=== PATIENT | male | born 1960 | race Caucasian/White ===

== ENCOUNTER → 2020-10-27 | Outpatient (REF) | LOC: M EMP 15:56 | PROVIDERS: ATTEND Family Medicine | DX: Z11.52 Encounter for screening for COVID-19 (principal) ==

== ENCOUNTER 2020-12-02 10:06 | Emergency (ER) | payer BC ==
[~2020-12-02] VITALS: Ht 175.3 cm; Wt 80.8 kg
[2020-12-02 11:23] LABS: RSV AMPLIFICATION NEGATIVE (NEGATIVE)
[2020-12-02 11:39] VITALS: BP 148/80
[2020-12-02] MEDS ORDERED: AUGM875T28 PO (11:41)
== END 2020-12-02 11:46 | disposition home or self-care (01) ==
LOC: M ED 10:06
DX: J02.9 Acute pharyngitis, unspecified (principal); Z88.1 Allergy status to other antibiotic agents; Z88.8 Allergy status to other drugs, medicaments and biological substances

== ENCOUNTER → 2021-01-02 | Outpatient (CLI) | payer BC ==
[~2021-01-02] MED LIST: AUGM875T28 PO
--- NOTE | 2021-01-02 12:01 | REP ---
INDICATION: RT FOOT PAIN. COMPARISON: None. TECHNIQUE: Three views FINDINGS: There are linear lucencies in the proximal phalanx of the 4th digit. These are seen in a limited fashion on this three view exam. IMPRESSION: Lucencies in the 4th digit as described above likely healing fractures. There are no priors comparison. <Electronically signed by Gunnar Del Angel > 01/02/21 [id number]
== END ==
LOC: M SOG 10:04
PROVIDERS: ATTEND Orthopaedic Surgery
DX: M79.671 Pain in right foot (principal)

== ENCOUNTER → 2021-03-03 | Outpatient (REF) | payer BC | LOC: M LABSMTC 10:03 | PROVIDERS: ATTEND Family Medicine | DX: Z11.52 Encounter for screening for COVID-19 (principal); Z20.822 Contact with and (suspected) exposure to COVID-19 ==

== ENCOUNTER → 2021-03-21 | Outpatient (CLI) | payer SELFPAY | LOC: M LABSMTC 09:11 | PROVIDERS: ATTEND Pediatrics | DX: Z20.822 Contact with and (suspected) exposure to COVID-19 (principal) ==

== ENCOUNTER → 2021-07-26 | Outpatient (CLI) | payer BC | LOC: M EKG 12:26 | PROVIDERS: ATTEND Anesthesiology | DX: Z01.818 Encounter for other preprocedural examination (principal); R94.31 Abnormal electrocardiogram [ECG] [EKG] ==

== ENCOUNTER → 2021-07-26 | Outpatient (CLI) | payer BC | LOC: M LABSMTC 06-12 14:45 | PROVIDERS: ATTEND Anesthesiology | DX: Z01.818 Encounter for other preprocedural examination (principal); Z11.52 Encounter for screening for COVID-19 ==

== ENCOUNTER 2021-07-31 06:16 | Day surgery (SDC) | payer BC ==
[~2021-07-31] VITALS: Ht 175.3 cm; Wt 81.8 kg
[~2021-07-31 06:16] MED LIST changes: +LR 1,000 ML IV SCH
[2021-07-31] MEDS ORDERED: LR 1,000 ML IV SCH ×2 (06:45→09:00)
[2021-07-31] MEDS ORDERED: propofoL 200 MG/20 ML VIAL As Ordered ONE (07:15)
[2021-07-31] MEDS ORDERED: MIDAZOLAM INJ 2MG/2ML VIAL (J2250 PER 1MG) As Ordered ONE (07:15)
[2021-07-31] MEDS ORDERED: fentaNYL 250 MCG/5 ML INJECTION As Ordered ONE (07:15)
[2021-07-31] MEDS ORDERED: LIDOCAINE 2% 100MG/5ML SDV (FOR ANES.) As Ordered ONE (07:15)
[2021-07-31] MEDS ORDERED: ROCURONIUM BROMIDE 50 MG/5 ML VIAL As Ordered ONE (07:15)
[2021-07-31] MEDS ORDERED: SCOPOLAMINE 1MG TRANSDERMAL PATCH TOP ONE (07:20)
[2021-07-31] MEDS ORDERED: BUPIVACAINE HCL 0.25% 30ML VIAL As Ordered ONE (07:20)
[2021-07-31] MEDS ORDERED: dexameTHASONE 4 MG/ML 1ML VIAL (J1100 PER 1MG) As Ordered ONE (07:50)
[2021-07-31] MEDS ORDERED: HYDROmorphone HCL 2MG/ML 1ML VIAL As Ordered ONE (07:59)
[2021-07-31] MEDS ORDERED: METOCLOPRAMIDE INJ 10MG/2ML VIAL (J2765 PER 1) As Ordered ONE (08:00)
[2021-07-31] MEDS ORDERED: ONDANSETRON 4MG/2ML VIAL As Ordered ONE (08:00)
[2021-07-31] MEDS ORDERED: ePHEDrine SULFATE 25 MG/5 ML(5MG/ML) SYRINGE As Ordered ONE (08:01)
[2021-07-31] MEDS ORDERED: ACETAMINOPHEN 1000MG 100ML IV BTL (OFIRMEV) (J0131 PER 10MG) As Ordered ONE (08:07)
[2021-07-31] MEDS ORDERED: SUGAMMADEX SODIUM 500 MG/5 ML VIAL (BRIDION) As Ordered ONE (08:08)
[2021-07-31] MEDS ORDERED: fentaNYL 100 MCG/2 ML INJECTION IV PRN (09:00)
[2021-07-31] MEDS ORDERED: MORPHINE 2 MG/ML 1ML VIAL IV PRN (09:00)
[2021-07-31] MEDS ORDERED: ONDANSETRON 4MG/2ML VIAL IV PRN (09:00)
[2021-07-31] MEDS ORDERED: oxyCODONE 5MG TAB PO PRN (09:00)
[2021-07-31 09:45] VITALS: BP 144/80
== END 2021-07-31 10:02 | disposition home or self-care (01) ==
LOC: M SDC 06:16
PROVIDERS: ATTEND Surgery
DX: K42.9 Umbilical hernia without obstruction or gangrene (principal); M10.9 Gout, unspecified; K21.9 Gastro-esophageal reflux disease without esophagitis; K51.90 Ulcerative colitis, unspecified, without complications; Z88.1 Allergy status to other antibiotic agents; Z88.8 Allergy status to other drugs, medicaments and biological substances
CPT/HCPCS: 49585; J0131; J1100; J1170; J2250; J2405; J2765; J3010

== ENCOUNTER → 2021-11-06 | Outpatient (REF) ==
[~2021-11-06] MED LIST changes: -LR 1,000 ML IV SCH
[2021-11-06 14:45] LABS: RSV AMPLIFICATION NEGATIVE (NEGATIVE)
== END ==
LOC: M EMP 13:51
PROVIDERS: ATTEND Family Medicine
DX: Z20.822 Contact with and (suspected) exposure to COVID-19 (principal)

== ENCOUNTER → 2022-01-01 | Outpatient (CLI) | payer BC | LOC: M LABSMTC 09:59 | PROVIDERS: ATTEND Surgery | DX: Z01.812 Encounter for preprocedural laboratory examination (principal); Z11.52 Encounter for screening for COVID-19 ==

== ENCOUNTER → 2023-07-04 | Outpatient (CLI) | payer BC ==
[2023-07-04 08:34] LABS: HEMATOCRIT 44.2 % (42.0-52.0); HEMOGLOBIN 14.9 g/dl (13.5-17.5); MEAN CORPUSCULAR HEMOGLOBIN 32.4 pg (27.0-33.0); MEAN CORPUSCULAR HGB CONC 33.7 g/dl (32.0-36.5); MEAN CORPUSCULAR VOLUME 96.1 fl (80.0-96.0); PLATELET COUNT, AUTOMATED 212 10^3/uL (150-450); WHITE BLOOD COUNT 4.6 10^3/uL (4.0-10.0)
[2023-07-04 09:06] LABS: HEMOGLOBIN A1c 4.8 % (4.0-6.0)
[2023-07-04 17:04] LABS: PSA SCREENING 2.72 NG/ML (< 4.00)
[2023-07-04 17:05] LABS: ALBUMIN 3.8 G/DL (3.2-5.2); ALKALINE PHOSPHATASE 74 U/L (46-116); ALT/SGPT 17 U/L (7.0-40); AST/SGOT 12 U/L (<34); BILIRUBIN,TOTAL 0.7 MG/DL (0.3-1.2); BLOOD UREA NITROGEN 15 MG/DL (9-23); CALCIUM LEVEL 9.6 MG/DL (8.3-10.6); CARBON DIOXIDE LEVEL 29 MMOL/L (20-31); CHLORIDE LEVEL 106 MMOL/L (98-107); CHOLESTEROL LEVEL 241 MG/DL (<200); CHOLESTEROL RISK RATIO 3.24 (<5); CREATININE FOR GFR 0.86 MG/DL (0.70-1.30); GLOMERULAR FILTRATION RATE > 60.0 (>49); GLUCOSE, FASTING 81 MG/DL (74-106); HDL CHOLESTEROL 74.2 MG/DL (>40); LDL CHOLESTEROL 143.6 MG/DL (<100); NON-HDL-C 166.8 MG/DL; POTASSIUM SERUM 4.2 MMOL/L (3.5-5.1); SODIUM LEVEL 140 MMOL/L (136-145); TRIGLYCERIDES LEVEL 116 MG/DL (<150)
== END ==
LOC: M LAB 07:46
PROVIDERS: ATTEND Family Medicine
DX: Z13.220 Encounter for screening for lipoid disorders (principal)
CPT/HCPCS: 36415; 80053; 80061; 83036; 85027; G0103

== ENCOUNTER → 2023-11-28 | Outpatient (REF) | payer BC | LOC: M SFHCDERM 16:33 | PROVIDERS: ATTEND Nurse Practitioner Family | DX: L82.0 Inflamed seborrheic keratosis (principal) ==

== ENCOUNTER → 2025-01-27 | Outpatient (REF) | payer BC | LOC: M SFHCDERM 13:04 | PROVIDERS: ATTEND Nurse Practitioner Family | DX: L57.0 Actinic keratosis (principal) ==